=== PATIENT | male | born 1960 | race Caucasian/White ===

== ENCOUNTER 2024-02-15 23:53 | Outpatient (REF) | payer SELFPAY ==
[2024-02-16 00:08] LABS: Bilirubin Negative (Negative); Blood Small (Negative); Clarity Clear (Clear); Glucose Negative (Negative); Ketones Negative (Negative); Leukocyte Esterase Negative (Negative); Nitrite Negative (Negative); Specific Gravity 1.025 (1.005-1.025); Urobilinogen 0.2 mg/dL (Up to 0.2)
[2024-02-16 00:09] LABS: Bacteria Few HPF (Negative); C & S Indicated? No; Casts Negative LPF (Negative); Crystals Few Calcium Oxalate HPF (Negative); Epithelial Cells Few HPF (Negative); Mucus Negative (Negative); RBC 20-50 HPF (0-2)
== END 2024-02-15 23:54 | disposition home or self-care (01) ==
LOC: LBN 23:53
PROVIDERS: Visit Provider Family Medicine
DX: R30.0 Dysuria (principal)
CPT/HCPCS: 81003; 81015

== ENCOUNTER 2024-02-18 19:51 | Outpatient (REF) | payer SELFPAY ==
[2024-02-18 21:23] LABS: Anion Gap 7.5 mmol/L (3-11); BUN 12 mg/dL (7-18); CO2 28.5 mmol/L (21.0-32.0); CREATININE 0.8 mg/dL (0.70-1.30); Calcium 8.6 mg/dL (8.5-10.1); Chloride 101 mmol/L (98-107); Estimated GFR 100.06 (mL/min/1.73m2); Glucose 111 mg/dL (74-106); Potassium 4.4 mmol/L (3.5-5.1); Sodium 137 mmol/L (136-145)
== END 2024-02-18 19:52 | disposition home or self-care (01) ==
LOC: LBN 19:51
PROVIDERS: Visit Provider Family Medicine
DX: E87.1 Hypo-osmolality and hyponatremia (principal)
CPT/HCPCS: 80048

== ENCOUNTER 2024-05-14 22:52 | Outpatient (REF) | payer SELFPAY ==
[2024-05-14 16:00] LABS: Anion Gap 8.9 mmol/L (3-11); BUN 15 mg/dL (7-18); CO2 26.1 mmol/L (21.0-32.0); CREATININE 0.9 mg/dL (0.70-1.30); Calcium 9.1 mg/dL (8.5-10.1); Chloride 106 mmol/L (98-107); Estimated GFR 96.57 (mL/min/1.73m2); Glucose 105 mg/dL (74-106); Potassium 4.5 mmol/L (3.5-5.1); Sodium 141 mmol/L (136-145)
== END 2024-05-14 22:53 | disposition home or self-care (01) ==
LOC: LBN 22:52
PROVIDERS: Visit Provider Family Medicine
DX: M48.061 Spinal stenosis, lumbar region without neurogenic claudication (principal); M62.81 Muscle weakness (generalized)
CPT/HCPCS: 80048

== ENCOUNTER 2024-07-11 11:34 | Emergency (ER) | payer OTHER, SELFPAY ==
[2024-07-11 11:38] VITALS: BP 125/92; PULSE 85; RESP 20; TEMP 36.6; O2SAT 96
--- NOTE | 2024-07-11 11:56 | W.ED.GENAD ---
Discharge Plan Disposition Patient Disposition: Home Discharge Details Clinical Impression: COVID Primary Care Provider: Unknown,Unknown ED Provider: Liban Carmen Home Meds and New Rx's Prescriptions: New Paxlovid 300 mg (150 mg x 2)-100 mg tablets,dose pack See Rx Instructions .ROUTE .COMPLEX Qty: 30 0RF Rx Instructions: take TWO 150 mg tablets of nirmatrelvir with ONE 100 mg tablet of ritonavir twice daily for 5 days No Action lorazepam [Ativan] 0.5 mg tablet 0.5 mg PO QID PRN baclofen 10 mg tablet 10 mg PO BID fentanyl 75 mcg/hr patch 72 hour 1 patch transdermal Q72H gabapentin 100 mg capsule 200 mg PO BID melatonin 3 mg capsule 6 mg PO QHS ondansetron 4 mg tablet,disintegrating 4 mg PO QID PRN Discharge Instructions Additional Instructions: you have covid, per report from [facility] your vital signs and respiratory function are at baseline. you are on day 4 of symptoms and in order for the medication to be effective, you should start paxlovid today. HPI General Date/Time Provider Initiated Documentation: 07/11/24 11:35. Limitations to Documentation: physical limitation. Information obtained by: patient and EMS. HPI Narrative: 63-year-old gentleman with ALS presents via EMS from [facility] for evaluation of positive COVID test. The patient reports that he has been having some symptoms for the last 4 days. Mild body aches, sore throat. No change in his respiratory status. The patient states that he is DNR/DNI, would not want any airway management. Per report, the care home was unable to prescribe Paxlovid and so the patient was sent here to get this medication. Related Data Home Medications ?Medication ?Instructions ?Recorded ?Confirmed baclofen 10 mg tablet 10 mg PO BID 07/11/24 07/11/24 fentanyl 75 mcg/hr transdermal 1 patch transdermal Q72H 07/11/24 07/11/24 patch gabapentin 100 mg capsule 200 mg PO BID 07/11/24 07/11/24 lorazepam 0.5 mg tablet (Ativan) 0.5 mg PO QID PRN 07/11/24 07/11/24 melatonin 3 mg capsule 6 mg PO QHS 07/11/24 07/11/24 nirmatrelvir 300 mg (150 mg See Rx Instructions PO .COMPLEX 07/11/24 x2)-ritonavir 100 mg tablet,dose #30 dose pk pack (Paxlovid) ondansetron 4 mg disintegrating 4 mg PO QID PRN 07/11/24 07/11/24 tablet Previous Rx's ?Medication ?Instructions ?Recorded nirmatrelvir 300 mg (150 mg See Rx Instructions PO .COMPLEX 07/11/24 x2)-ritonavir 100 mg tablet,dose #30 dose pk pack (Paxlovid) Allergies Allergy/AdvReac Type Severity Reaction Status Date / Time No Known Allergies Allergy Unverified 07/11/24 11:42 General Stated Complaint: RespSymp GREG: 4 Exam Narrative Exam Narrative: Review of Systems: All systems reviewed & are unremarkable except as noted in HPI and below Chronically ill-appearing NCAT Nasal congestion, mild posterior oropharynx erythema RRR Unlabored respiratory effort increased accessory muscle use, no hypoxia or significant tachypnea Cross catheter in place At neurologic baseline consistent with ALS Course Vital Signs Vital signs: Vital Signs Temperature 36.6 C 07/11/24 11:38 Pulse 85 07/11/24 11:38 Respiratory Rate 20 07/11/24 11:38 Blood Pressure 125/92 H 07/11/24 11:38 Pulse Oximetry 96 07/11/24 11:38 Temperature 36.6 C 07/11/24 11:38 Temperature Source Temporal Artery Scan 07/11/24 11:38 Pulse 85 07/11/24 11:38 Respiratory Rate 20 07/11/24 11:38 Blood Pressure 125/92 H 07/11/24 11:38 Blood Pressure Position Sitting 07/11/24 11:38 Pulse Oximetry 96 07/11/24 11:38 Oxygen Delivery Method Room Air 07/11/24 11:38 Oxygen Flow Rate 0 07/11/24 11:38 Medical Decision Making Evaluation of positive COVID test obtained at [facility] [place] [facility]. They were unable to get the provider to prescribe Paxlovid so they sent the patient in an ambulance here. He is hemodynamically stable. He has significant comorbidity secondary to his ALS, but has advanced directives do not include intubation or other tracheostomy or ventilator management. The patient takes medicine by mouth. He is within the 5-day window of initiating Paxlovid and a prescription has been sent to the pharmacy. We do not have medication available to send with the patient, but we did call to confirm it is available at the pharmacy locally. Quality:SDOH Health Related Social Needs: No Data to Display PFSH All Active Problems (Updated 07/11/24 @ 11:46 by Liban Carmen MD) COVID (Acute) Social History Smoking risk assessment performed?: No
[2024-07-11 12:06] VITALS: BP 139/85; PULSE 87; RESP 18; TEMP 36.6; O2SAT 97
[2024-07-11 12:10] VITALS: BP 139/85; PULSE 87; RESP 18; TEMP 36.6; O2SAT 97
== END 2024-07-11 12:12 | disposition home or self-care (01) ==
PROVIDERS: Emergency Provider Emergency Medicine; PCP Family Medicine Geriatric Medicine
DX: U07.1 COVID-19 (principal); Z66 Do not resuscitate; Z96.0 Presence of urogenital implants
CPT/HCPCS: 99282

== ENCOUNTER 2024-08-08 11:12 | Outpatient (REF) | payer MEDICARE, SELFPAY ==
[2024-08-08 12:47] LABS: Bilirubin Negative (Negative); Blood Moderate (Negative); Clarity Cloudy (Clear); Glucose Negative (Negative); Ketones Negative (Negative); Leukocyte Esterase Moderate (Negative); Nitrite Positive (Negative); Specific Gravity 1.025 (1.005-1.025); Urobilinogen 0.2 mg/dL (Up to 0.2)
[2024-08-08 12:58] LABS: Bacteria Moderate HPF (Negative); C & S Indicated? C&S Done As Ordered; Casts Negative LPF (Negative); Crystals Rare Calcium Oxalate HPF (Negative); Epithelial Cells Negative HPF (Negative); Mucus Negative (Negative); WBC 20-50 HPF (0-5)
== END 2024-08-08 11:13 | disposition home or self-care (01) ==
LOC: LBN 11:12
PROVIDERS: PCP Family Medicine Geriatric Medicine; Visit Provider Family Medicine Geriatric Medicine
DX: N39.0 Urinary tract infection, site not specified (principal)
CPT/HCPCS: 87077; 81003; 81015; 87086; 87186